=== PATIENT | male | born 1955 | race Caucasian/White ===

== ENCOUNTER 2016-10-15 13:54 | Emergency (ER) | payer OTHER ==
[~2016-10-15] VITALS: Wt 73.0 kg
[~2016-10-15 13:54] MED LIST: MORP60TA9 PO; OXYC5TAB PO; [UNRECOGNIZED DRUG - CODE] PO
[2016-10-15] MEDS ORDERED: ONDANSETRON 4 MG INJ IV STA (14:56)
[2016-10-15] MEDS ORDERED: SOD CHLORIDE 0.9% 1,000 ML IV STA (14:56)
[2016-10-15] MEDS ORDERED: MORP60TA37 PO (15:01)
[2016-10-15] MEDS ORDERED: OXYC30TA PO (15:01)
[2016-10-15 15:25] LABS: BASOPHILS % 0.1 % (0.0-2.0); EOSINOPHILS # 0.2 10^3/ul (0.0-0.5); EOSINOPHILS % 2.4 % (0.0-7.0); HEMATOCRIT 36.5 % (42.0-52.0); HEMOGLOBIN 12.3 g/dl (14.0-18.0); LYMPHOCYTES # 0.8 10^3/ul (0.8-2.9); LYMPHOCYTES % 8.7 % (15.0-51.0); MEAN CORPUSCULAR HEMOGLOBIN 28.1 pg (29.0-33.0); MEAN CORPUSCULAR HGB CONC 33.8 g/dl (32.0-37.0); MEAN CORPUSCULAR VOLUME 83.2 fl (82.0-101.0); MEAN PLATELET VOLUME 7.3 fl (7.4-10.4); MONOCYTE # 0.3 10^3/ul (0.3-0.9); MONOCYTES % 3.4 % (0.0-11.0); NEUTROPHIL # 8.1 10^3/ul (1.6-7.5); NEUTROPHILS % 85.4 % (39.0-77.0); PLATELET COUNT 299 10^3/UL (140-440); RED BLOOD COUNT 4.39 10^6/ul (4.70-6.10); RED CELL DISTRIBUTION WIDTH 13.9 % (11.5-14.5); UNCORRECTED WBC 9.5 10^3/ul (4.8-10.8); WHITE BLOOD COUNT 9.5 10^3/ul (4.8-10.8)
--- NOTE | 2016-10-15 15:34 | RADRPT ---
PROCEDURE: XR Chest. CLINICAL INDICATION: Chest pain TECHNIQUE: Chest AP portable. COMPARISON: No comparison available. FINDINGS: The mediastinal structures are unremarkable. The heart is normal in size and configuration. The pu lmonary vascularity is normal. The lung zhou are unremarkable. No consolidation is identified. The pleural spaces are unremarkable. The axial skeleton is unremarkable. IMPRESSION: No active intrathoracic disease. RPTAT: HGDB .Frank Miles MD, MD Date Time Electronically viewed and signed by .Frank Miles MD, MD on 10/15/2016 15:34 .B/
[2016-10-15 15:36] LABS: INR 0.99; PROTIME 13.1 Sec (12.2-14.2)
[2016-10-15 15:37] LABS: CONDITION 1; PARTIAL THROMBOPLASTIN TIME 33.9 Sec (25.0-35.0)
[2016-10-15 15:48] LABS: ALBUMIN 3.6 g/dl (3.3-4.9); CHLORIDE 103 mmol/L (97-110)
[2016-10-15 15:49] LABS: POTASSIUM 5.4 mmol/L (3.5-5.1); SODIUM 140 mmol/L (135-144)
[2016-10-15 15:51] LABS: ANION GAP 14 (8-16); ASPARTATE AMINO TRANSFERASE 25 IU/L (15-46); BILIRUBIN,INDIRECT 0.1 mg/dl (0-1.1); BILIRUBIN,TOTAL 0.1 mg/dl (0.2-1.3); CARBON DIOXIDE 28 mmol/L (21-31); CREATININE 0.87 mg/dl (0.61-1.24)
[2016-10-15 15:52] LABS: ALANINE AMINOTRANSFERASE 20 IU/L (13-69); ALKALINE PHOSPHATASE 80 IU/L (42-121); BLOOD UREA NITROGEN 18 mg/dl (7-20); CALCIUM 9.1 mg/dl (8.4-10.2); GLUCOSE 102 mg/dl (70-220); TOTAL PROTEIN 6.6 g/dl (6.1-8.1)
[2016-10-15 16:00] LABS: B-TYPE NATRIURETIC PEPTIDE 750 PG/ML (0-125)
[2016-10-15 16:11] LABS: TROPONIN-I < 0.012 ng/ml (0.00-0.12)
--- NOTE | 2016-10-15 16:28 | ERD ---
ER Documentation Chief Complaint Date/Time DATE: 10/15/16 TIME: 16:25 Chief Complaint BILATERAL LEG SWELLING NO TRAUMA. MILD DIZZINESS, MILD SOB NO CP. HPI This is a 61-year-old male who presents to the emerge for evaluation of leg swelling, diarrhea, and nausea. The patient also states she has got abdominal cramping which she localizes to the total portion of the abdomen. The patient is denying any aggravating or relieving factors for his diarrhea and cramping and came to the ER for evaluation. He denies any active chest pain or palpitations or shortness of breath ROS All systems reviewed and are negative except as per history of present illness. Medications Home Meds Reported Medications Oxycodone Hcl* (IR) (Oxycodone Hcl*) 30 Mg Tablet, 30 MG PO Q4H Y for PAIN, TAB 10/15/16 Morphine Sulfate* (Ms Contin*) 60 Mg Tablet.sa, 60 MG PO Q8, TAB.SA 10/15/16 Discontinued Reported Medications Benztropine Mesylate (Benztropine Mesylate) 5 Gm Powder, 1 MG PO BID 08/12/13 Oxycodone Hcl* (IR) (Oxycodone Hcl*) 15 Mg Tab, 15 MG PO Q4 Y 08/12/13 Morphine Sulfate (MORPHINE SULFATE) 60 Mg Tablet.er, 60 MG PO DAILY 08/12/13 Allergies Allergies: Coded Allergies: No Known Allergy (Unverified , 03/17/14) PMhx/Soc History of Surgery: Yes (back surgery ) Anesthesia Reaction: No Hx Neurological Disorder: No Hx Respiratory Disorders: No Hx Cardiac Disorders: No Hx Psychiatric Problems: No Hx Miscellaneous Medical Probl: Yes (Back pain ,ALCOHOL ABUSE ) Hx Alcohol Use: Yes Hx Substance Use: No Hx Tobacco Use: Yes Smoking Status: Current every day smoker Physical Exam Vitals Vital Signs Date Time Temp Pulse Resp B/P Pulse Ox O2 Delivery O2 Flow Rate FiO2 10/15/16 15:16 66 18 142/74 99 Room Air 10/15/16 14:04 100.3 80 22 160/74 95 Physical Exam INITIAL VITAL SIGNS: Reviewed by me GENERAL: The patient is well developed and appropriate for usual state of health in no apparent distress HEENT: Pupils equal, round, and reactive to light. EOMI. There is no scleral icterus. NECK: C-spine is soft and supple, there is no meningismus. There is no cervical lymphadenopathy. LUNGS: Clear to auscultation bilaterally. There are no rales, wheezes or rhonchi. HEART: Regular rate and rhythm, no murmurs, clicks, rubs or gallops. ABDOMEN: Soft, non-tender, non-distended. There are bowel sounds in all four quadrants. No rebound or guarding. EXTREMITIES: 1+ edema in the bilateral lower extremities, no cyanosis NEUROLOGICAL: The patient moves all four extremities with 5/5 strength. Cranial nerves II - XII are intact. Normal gait. Alert and oriented SKIN: There is no apparent rash or petechiae. HEME/LYMPHATIC: There is no evidence of excessive bruising or lymphedema. PSYCHIATRIC: The patient does not appear anxious or depressed. Result Diagram: 10/15/16 1515 10/15/16 1515 Results 24 hrs Laboratory Tests Test 10/15/16 15:15 Activated Partial Thromboplast Time 33.9Sec Alanine Aminotransferase (ALT/SGPT) 20IU/L Albumin 3.6g/dl Albumin/Globulin Ratio 1.20 Alkaline Phosphatase 80IU/L Anion Gap 14 Aspartate Amino Transf (AST/SGOT) 25IU/L B-Type Natriuretic Peptide 750PG/ML Basophils # 0.010^3/ul Basophils % 0.1% Blood Morphology Comment Blood Urea Nitrogen 18mg/dl Calcium Level 9.1mg/dl Carbon Dioxide Level 28mmol/L Chloride Level 103mmol/L Creatinine 0.87mg/dl Direct Bilirubin 0.00mg/dl Eosinophils # 0.210^3/ul Eosinophils % 2.4% Globulin 3.00g/dl Glucose Level 102mg/dl Hematocrit 36.5% Hemoglobin 12.3g/dl INR International Normalized Ratio 0.99 Indirect Bilirubin 0.1mg/dl Lymphocytes # 0.810^3/ul Lymphocytes % 8.7% Mean Corpuscular Hemoglobin 28.1pg Mean Corpuscular Hemoglobin Concent 33.8g/dl Mean Corpuscular Volume 83.2fl Mean Platelet Volume 7.3fl Monocytes # 0.310^3/ul Monocytes % 3.4% Neutrophils # 8.110^3/ul Neutrophils % 85.4% Nucleated Red Blood Cells # 0.010^3/ul Nucleated Red Blood Cells % 0.0/100WBC Platelet Count 34423^3/UL Potassium Level 5.4mmol/L Prothrombin Time 13.1Sec Prothrombin Time Ratio 1.0 Red Blood Count 4.3910^6/ul Red Cell Distribution Width 13.9% Sodium Level 140mmol/L Total Bilirubin 0.1mg/dl Total Protein 6.6g/dl Troponin I < 0.012ng/ml White Blood Count 9.510^3/ul Current Medications Medications (Trade) Dose Ordered Sig/Feliciano Route PRN Reason Start Time Stop Time Status Last Admin Dose Admin Sodium Chloride (NS) 1,000 ml @ 1,000 mls/hr Q1H STAT IV 10/15/16 14:56 10/15/16 15:55 Ondansetron HCl (Zofran Inj) 4 mg ONCE STAT IV 10/15/16 14:56 10/15/16 14:57 Procedures/MDM EKG: Rate/Rhythm: [Normal Sinus Rhythm] QRS, ST, T-waves: [No changes consistent w/ acute ischemia] Impression: [No evidence of ischemia or arrhythmia] Chest X-ray 1V Interpreted by me: Soft Tissue: No acute abnormalities Bones: No acute abnormalities Mediastinum/Cardiac Silhouette/Lungs: [No acute abnormalities] This 61-year-old male presents to the emergency room for evaluation of leg swelling, and abdominal cramping and diarrhea. This patient had very minor low edema on my examination. Patient's vital signs are stable. He had a cardiac workup including a troponin which is normal, chest x-ray which is clear, an EKG which is nonischemic. The patient was given Zofran. No vomiting in the emergency room. The patient could be suffering from a viral gastroenteritis. The patient will be discharged at this time a prescription for Zofran. Smoking Cessation Therapy: Pt. was lectured for greater than 3 minutes on the health risks of continued smoking and the benefits of cessation. Departure Diagnosis: Primary Impression: Bilateral edema of lower extremity Additional Impressions: Nausea vomiting and diarrhea Normocytic anemia Tobacco abuse Condition: Stable GEORGINA LEARY DO Oct 15, 2016 16:28
[2016-10-15] MEDS ORDERED: ONDA4TAB8 PO (16:29)
[2016-10-15 17:18] VITALS: BP 125/79; PULSE 66; RESP 19; TEMP 98.6
== END 2016-10-15 17:56 | disposition home or self-care (01) ==
LOC: E/R 13:54
DX: R60.0 Localized edema (principal); R11.2 Nausea with vomiting, unspecified; R19.7 Diarrhea, unspecified; D64.9 Anemia, unspecified; F17.210 Nicotine dependence, cigarettes, uncomplicated; R40.2142 Coma scale, eyes open, spontaneous, at arrival to emergency department; R40.2252 Coma scale, best verbal response, oriented, at arrival to emergency department; R40.2362 Coma scale, best motor response, obeys commands, at arrival to emergency department; R06.02 Shortness of breath
CPT/HCPCS: 36415; 71010; 80053; 83880; 84484; 85025; 85610; 85730; 93005; 96374; 99285; J2405; J7030

== ENCOUNTER 2017-01-28 11:20 | Emergency (ER) | payer OTHER ==
[~2017-01-28] VITALS: Wt 69.0 kg
[~2017-01-28 11:20] MED LIST changes: +MORP60TA37 PO; -MORP60TA9 PO; +ONDA4TAB8 PO; +OXYC30TA PO; -OXYC5TAB PO; -[UNRECOGNIZED DRUG - CODE] PO
--- NOTE | 2017-01-28 13:06 | RADRPT ---
PROCEDURE: CT Brain without. CLINICAL INDICATION: Code stroke TECHNIQUE: A CT of the brain was performed utilizing axial sections from the skull base through th e vertex without contrast. The scan was reviewed in soft tissue brain and high frequency resolution bone algorithm windows. Images were reviewed on a high-resolution PACS workstation. The exam CTDI = 69.60 mGy, and the DLP = 1402.70 mGy-cm. COMPARISON: None available FINDINGS: There is mild prominence of the lateral ventricles and cerebral sulci, consistent with diffuse cereb ral atrophy. There is no intracranial hemorrhage, midline shift, or mass effect. No abnormal extra- axial fluid collections are identified. There is hypoattenuation of the periventricular white matte r. The tineo-white differentiation is well preserved. The basal cisterns are patent. The posterior fossa is unremarkable. The visualized portions of the orbits demonstrate mild asymmetric right proptosis. The paranasal si nuses and mastoid air cells are clear. No calvarial fracture or abnormality are identified. The so ft tissues are unremarkable. IMPRESSION: 1. No acute intracranial abnormality. 2. Age related senescent changes with mild diffuse cerebral atrophy. 3. Patchy periventricular hypoattenuation, nonspecific finding, most commonly associated with micro vascular ischemic changes. 4. Mild right proptosis. Critical results were discussed with Miroslava Dia on 01/28/2017 at 1:01 PM RPTAT: HH .Floresita García MD, Date Time Electronically viewed and signed by .Floresita García MD, on 01/28/2017 13:06 .Craig/
[2017-01-28 13:32] LABS: ADD SCAN DIFF NO
[2017-01-28 13:34] LABS: BASOPHIL # 0.1 10^3/ul (0.0-0.1); BASOPHILS % 0.6 % (0.0-2.0); EOSINOPHILS # 0.2 10^3/ul (0.0-0.5); HEMATOCRIT 35.3 % (42.0-52.0); HEMOGLOBIN 11.8 g/dl (14.0-18.0); LYMPHOCYTES # 1.2 10^3/ul (0.8-2.9); MEAN CORPUSCULAR HEMOGLOBIN 27.9 pg (29.0-33.0); MEAN CORPUSCULAR HGB CONC 33.4 g/dl (32.0-37.0); MEAN CORPUSCULAR VOLUME 83.5 fl (82.0-101.0); MEAN PLATELET VOLUME 10.3 fl (7.4-10.4); MONOCYTE # 0.8 10^3/ul (0.3-0.9); MONOCYTES % 7.9 % (0.0-11.0); NEUTROPHIL # 7.6 10^3/ul (1.6-7.5); NEUTROPHILS % 76.8 % (39.0-77.0); PLATELET COUNT 233 10^3/UL (140-415); RED BLOOD COUNT 4.23 10^6/ul (4.70-6.10); RED CELL DISTRIBUTION WIDTH 13.2 % (11.5-14.5); WHITE BLOOD COUNT 9.9 10^3/ul (4.8-10.8)
--- NOTE | 2017-01-28 13:37 | RADRPT ---
PROCEDURE: XR Chest. CLINICAL INDICATION: Possible stroke TECHNIQUE: Chest AP portable COMPARISON: 10/15/2016 FINDINGS: The mediastinal structures are unremarkable. There is calcification of the thoracic aorta (consiste nt with atherosclerosis). The heart is normal in size and configuration. The pulmonary vascularity is normal. The lung zhou are unremarkable. No consolidation is identified. The pleural spaces are unremarkable. The osseous structures are unremarkable. IMPRESSION: Calcification of the thoracic aorta (consistent with atherosclerosis). No evidence for active cardiopulmonary disease. RPTAT: HGDB .Frank Miles MD, MD Date Time Electronically viewed and signed by .Frank Miles MD, on 01/28/2017 13:37 .B/
[2017-01-28 13:53] LABS: ALBUMIN 3.7 g/dl (3.3-4.9); CHLORIDE 105 mmol/L (97-110); INR 1.02; PROTIME 13.4 Sec (12.2-14.2)
[2017-01-28 13:54] LABS: SODIUM 134 mmol/L (135-144)
[2017-01-28 13:56] LABS: ANION GAP 7 (8-16); BILIRUBIN,INDIRECT 0.1 mg/dl (0-1.1); BILIRUBIN,TOTAL 0.1 mg/dl (0.2-1.3); CARBON DIOXIDE 26 mmol/L (21-31); CREATININE 0.91 mg/dl (0.61-1.24)
[2017-01-28 13:57] LABS: ALANINE AMINOTRANSFERASE 29 IU/L (13-69); ALBUMIN/GLOBULIN RATIO 1.32; ALKALINE PHOSPHATASE 80 IU/L (42-121); ASPARTATE AMINO TRANSFERASE 20 IU/L (15-46); BLOOD UREA NITROGEN 21 mg/dl (7-20); CALCIUM 9.2 mg/dl (8.4-10.2); GLUCOSE 155 mg/dl (70-220); TOTAL PROTEIN 6.5 g/dl (6.1-8.1)
--- NOTE | 2017-01-28 13:58 | ERA ---
ER Documentation Chief Complaint Date/Time DATE: 01/28/17 TIME: 1206 Chief Complaint LIMITED ROM ON L HAND SINCE THIS AM. NO TRAUMA. NECK PAIN . NON TRAUMATIC HPI 61-year-old male states he went to bed feeling well and awoke this morning unable to move his left hand. He feels weakness and numbness from his elbow down. Patient reports no trauma. He reports no headache, difficulty speaking, any other focal weakness numbness or difficulty with vision. ROS All systems reviewed and are negative except as per history of present illness. Medications Home Meds Active Scripts Ondansetron Hcl* (Zofran*) 4 Mg Tablet, 4 MG PO Q8H Y for NAUSEA AND/OR VOMITING , #15 TAB Prov:GEORGINA LEARY DO 10/15/16 Reported Medications Oxycodone Hcl* (IR) (Oxycodone Hcl*) 30 Mg Tablet, 30 MG PO Q4H Y for PAIN, TAB 10/15/16 Morphine Sulfate* (Ms Contin*) 60 Mg Tablet.sa, 60 MG PO Q8, TAB.SA 10/15/16 Allergies Allergies: Coded Allergies: No Known Allergy (Unverified , 10/15/16) PMhx/Soc History of Surgery: Yes (back surgery ) Anesthesia Reaction: No Hx Neurological Disorder: No Hx Respiratory Disorders: No Hx Cardiac Disorders: No Hx Psychiatric Problems: No Hx Miscellaneous Medical Probl: Yes (Back pain , ETOH abuse, diabetes) Hx Alcohol Use: Yes Hx Substance Use: No Hx Tobacco Use: Yes (1-1.5 Packs per day) Smoking Status: Current every day smoker FmHx Noncontributory for chief complaint Physical Exam Vitals Vital Signs Date Time Temp Pulse Resp B/P Pulse Ox O2 Delivery O2 Flow Rate FiO2 01/28/17 11:21 98.9 101 21 143/76 94 Physical Exam GENERAL: The patient is well developed and appropriate for usual state of health in no apparent distress HEENT: Pupils equal, round, and reactive to light. EOMI. There is no scleral icterus. NECK: C-spine is soft and supple, there is no meningismus. There is no cervical lymphadenopathy. LUNGS: Clear to auscultation bilaterally. There are no rales, wheezes or rhonchi. HEART: Regular rate and rhythm, no murmurs, clicks, rubs or gallops. ABDOMEN: Soft, non-tender, non-distended. There are bowel sounds in all four quadrants. No rebound or guarding. EXTREMITIES: There is no peripheral cyanosis or edema. No focal swelling or erythema. NEURO: Patient is awake alert and oriented with a GCS of 15. Pupils are midrange, equal round and reactive to light. Face is symmetric, tongue is midline, motor strength is 5 out of 5 in all extremities except for the distal left upper extremity which demonstrates evidence of a distal neuropathy involving the median, ulnar and radial nerve. Sensory examination is otherwise nonfocal except for the distal left upper extremity. Gait is steady. SKIN: There is no apparent rash or petechiae. HEME/LYMPHATIC: There is no evidence of excessive bruising or lymphedema. PSYCHIATRIC: The patient does not appear anxious or depressed. Result Diagram: 01/28/17 1240 Results 24 hrs Laboratory Tests Test 01/28/17 12:40 White Blood Count 9.910^3/ul Red Blood Count 4.2310^6/ul Hemoglobin 11.8g/dl Hematocrit 35.3% Mean Corpuscular Volume 83.5fl Mean Corpuscular Hemoglobin 27.9pg Mean Corpuscular Hemoglobin Concent 33.4g/dl Red Cell Distribution Width 13.2% Platelet Count 18932^3/UL Mean Platelet Volume 10.3fl Neutrophils % 76.8% Lymphocytes % 12.0% Monocytes % 7.9% Eosinophils % 2.0% Basophils % 0.6% Nucleated Red Blood Cells % 0.0/100WBC Neutrophils # 7.610^3/ul Lymphocytes # 1.210^3/ul Monocytes # 0.810^3/ul Eosinophils # 0.210^3/ul Basophils # 0.110^3/ul Nucleated Red Blood Cells # 0.010^3/ul Prothrombin Time 13.4Sec Prothrombin Time Ratio 1.0 INR International Normalized Ratio 1.02 Activated Partial Thromboplast Time 36.0Sec Procedures/MDM Patient was taken to a room, seen and evaluated. Comfort measures were initiated. Diagnostic tests were ordered and reviewed. 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 At this time, patient has risk factors for stroke, but I do not believe that his symptoms are consistent with stroke. However, he has a significant functional loss of his nondominant left upper extremity. Given the high risk nature of this neurologic deficit, patient will be admitted for further MRI studying of his cervical spine which is been ordered as well as consultation and further treatment is necessary. Departure Diagnosis: Primary Impression: Neuropathy of left upper extremity BRYAN PHAM January 28, 2017 13:58
[2017-01-28 14:14] LABS: TROPONIN-I < 0.012 ng/ml (0.00-0.12)
--- NOTE | 2017-01-28 14:25 | RADRPT ---
PROCEDURE: MR Cervical Spine. CLINICAL INDICATION: Left arm weakness without known history of injury. TECHNIQUE: An MRI of the cervical spine was performed on a GE short bore high-definition 1.5 chencho scanner utilizing the following sequences: Sagittal and axial T1 weighted, sagittal and axial T2 we ighted, sagittal T2 weighted with fat saturation, and axial GRE. COMPARISON: No prior studies are available for comparison. FINDINGS: There is a normal cervical curvature. The james, medulla and cerebellum are normal. There is no mary dence of tonsillar herniation. The spinal cord is normal in size. No intramedullary lesion is ident ified. C1 and C2 are intact. There is an exaggerated cervical curvature at the level of C2-C3. C2-3: There is dorsal disk space narrowing. No disk bulge or herniations identified. There are deg enerative changes in the articular facets. There are ventral and dorsal osteophytes off the inferio r endplate of C3. C3-4: There is a bony central canal stenosis at C3-4. There is no evidence of cord edema. There is grade 1 anterolisthesis of C3-C4. There is dorsal disk space narrowing at C3-C4. There is a 4 mm c entral pseudo disk bulge at C3-4. There are degenerative changes in the facets at C3-4. C4-5: The intervertebral disk space, neural canal and nerve root foramina are unremarkable. There a re mild degenerative changes in the facets. There is a 3 mm AP central disk herniation with a small extruded fragment extending for a distance of 3.3 mm along the midline dorsal to the mid body of C4 . The neural canal at C5 is normal in size. C5-6: There is generalized disk space narrowing with ventral spondylosis. There is a small central annular tear. There is a 4.2 ml AP left paracentral disk osteophyte complex. There is a 3.8 mm AP r ight lateral disk osteophyte complex. There is generalized disk space narrowing and ventral spondyl osis. C6-7: There is a 3.3 mm central disk bulge. There is a 4 mm left paracentral disk osteophyte comple x. There is a 2.7 mm right paracentral disk osteophyte complex. The nerve root canals are patent b ilaterally. The neural canal at C7 is normal in size. C7-T1: The intervertebral disk space is well maintained. There are small ventral osteophytes at C7- T1. There is a 2.5 mm left lateral disk bulge just touching the exiting left nerve root sleeve. Th e right nerve root canal is normal. T1 is unremarkable. T1-2: The intervertebral disk space neural canal and nerve root foramina are unremarkable. There i s a very small left lateral disk osteophyte complex. T2 is unremarkable. T2-3: The intervertebral disk space neural canal and nerve root foramina are unremarkable. T3 is u nremarkable. T3-4: The intervertebral disk space neural canal and nerve root foramina are normal. No disk bulge or herniation is identified. The visible portions of the lung are normal. The parotid and submandibular glands are unremarkable. IMPRESSION: 1. Bony central canal stenosis and dorsal disk space narrowing with bilateral degenerative facet ar thropathy at C3-4. Grade 1 anterolisthesis of C3-C4 with bilateral degenerative facet arthropathy at C3-4. 2. 3.3 mm central disk herniation with small extruded fragment at C4-5. 3. Small central annular tear at C5-6. Dorsal spondylosis at C5-6 as described above. RPTAT:AAJJ Physician Fabiola Date Time Electronically viewed and signed by Physician Fabiola on 01/28/2017 14:25 ANIKA/
== END 2017-01-28 14:48 | disposition home or self-care (01) ==
LOC: FTE 11:20
DX: G56.92 Unspecified mononeuropathy of left upper limb (principal); F17.210 Nicotine dependence, cigarettes, uncomplicated; R20.0 Anesthesia of skin
CPT/HCPCS: 36415; 70450; 71010; 72156; 80053; 83036; 84484; 85025; 85610; 85730; 93005

== ENCOUNTER 2017-01-29 06:10 | Emergency (ER) | payer OTHER ==
[~2017-01-29] VITALS: Ht 170.2 cm; Wt 74.5 kg
[2017-01-29 06:15] VITALS: Ht 170.2 cm; Wt 74.5 kg
--- NOTE | 2017-01-29 07:35 | ERD ---
ER Documentation Chief Complaint Date/Time DATE: 01/29/17 TIME: 0704 Chief Complaint Pt reports unable to use L ahnd since yesterday HPI 61-year-old male returns to the emergency department today at my request for reevaluation of left upper extremity weakness and numbness. Patient had an evaluation yesterday for the same complaints. At that time, my initial diagnosis was a brachial plexus injury. Patient returns today indicating no significant change in his symptoms. He continues to have weakness and numbness in the left upper extremity involving a wrist drop as well as decreased sensation and motor function to the hand. Patient reports no change in his neurologic status including no headache focal weakness difficulty speaking or other complaints. ROS All systems reviewed and are negative except as per history of present illness. Medications Home Meds Active Scripts Ondansetron Hcl* (Zofran*) 4 Mg Tablet, 4 MG PO Q8H Y for NAUSEA AND/OR VOMITING , #15 TAB Prov:GEORGINA LEARY DO 10/15/16 Reported Medications Oxycodone Hcl* (IR) (Oxycodone Hcl*) 30 Mg Tablet, 30 MG PO Q4H Y for PAIN, TAB 10/15/16 Morphine Sulfate* (Ms Contin*) 60 Mg Tablet.sa, 60 MG PO Q8, TAB.SA 10/15/16 Allergies Allergies: Coded Allergies: No Known Allergy (Unverified , 10/15/16) PMhx/Soc History of Surgery: Yes (back surgery ) Anesthesia Reaction: No Hx Neurological Disorder: No Hx Respiratory Disorders: No Hx Cardiac Disorders: No Hx Psychiatric Problems: No Hx Miscellaneous Medical Probl: Yes (Back pain , ETOH abuse, diabetes) Hx Alcohol Use: Yes Hx Substance Use: No Hx Tobacco Use: Yes (1-1.5 Packs per day) FmHx Noncontributory for chief complaint Physical Exam Vitals Vital Signs Date Time Temp Pulse Resp B/P Pulse Ox O2 Delivery O2 Flow Rate FiO2 01/29/17 06:15 98.2 98 20 128/69 90 Physical Exam General: well developed, well nourished, in no distress. Neuro: Patient is awake alert and oriented with a GCS of 15. Normal clear speech. Normal vision. Normal visual acuity. No visual field deficits. Patient's cranial nerves appear to be intact bilaterally. Motor strength is normal throughout all extremities except for the left upper extremity which demonstrates evidence of a wrist drop. Patient has no obvious significant motor function to either the median, radial, ulnar nerve. He has sensory deficits in those nerve distributions as well. Patient has adequate flexion and extension at the elbow. He has normal supination and pronation of the elbow. He has normal shoulder elevation and abduction. Procedures/MDM Patient was taken to a room, seen and examined Consultations: Patient is under the care of a neurosurgeon. I reached out and spoke to this neurosurgeon and discussed the case including diagnostic findings from yesterday. We are in agreement that there is no need for acute surgical intervention at this time with conservative management. He will be following the patient up expeditiously. Medical decision makin-year-old male presents with symptoms consistent with a brachial nerve deficit. At this time, this appears to be only peripheral with no signs or symptoms that tract to an acute stroke. Yesterday CT scan was reassuring. Furthermore, patient shows no evidence of acute surgical emergency in his cervical spine. Patient will be followed up by his neurosurgeon with further evaluation pending. At this time he is appropriate for outpatient supportive care. Departure Diagnosis: Primary Impression: Brachial plexus dysfunction Condition: Stable Patient Instructions: Neuropathy, Peripheral Additional Instructions: Please see your neurosurgeon on Monday. Return for any problems or concerns BRYAN PHAM January 29, 2017 07:35
== END 2017-01-29 07:35 | disposition home or self-care (01) ==
LOC: E/R 06:10
DX: G54.0 Brachial plexus disorders (principal); E11.9 Type 2 diabetes mellitus without complications; F17.210 Nicotine dependence, cigarettes, uncomplicated
CPT/HCPCS: 99282